=== PATIENT | female | born 1950 | race Caucasian/White ===

== ENCOUNTER 2018-07-09 15:11 | Emergency (ER) | payer OTHER ==
[~2018-07-09] VITALS: Ht 147.3 cm; Wt 43.1 kg
[~2018-07-09 15:11] MED LIST: ASPIRIN EC81 M1 PO; EPINEPHRIN0.3 MG/0.1 IM; FENTANYL1 EAC2 TOP; FENTANYL1 EAC6 TOP; MEDROL4 M2 PO; METOPROLOL SUCC25 M1 PO; MIRAPEX0.25 M1 PO; VYTORIN 10-201 EACH PO; ZITHROMAX250 M2 PO
--- NOTE | 2018-07-09 15:28 | ED NECK/BACK PAIN COMPLAINT ---
History of Present Illness General Chief Complaint: Low Back Pain/Injury Stated Complaint: LOW BACK PAIN Source: patient Exam Limitations: no limitations Vital Signs & Intake/Output Vital Signs & Intake/Output Vital Signs Date Time Temp Pulse Resp B/P B/P Pulse O2 O2 Flow FiO2 Mean Ox Delivery Rate 07/09 1732 100.0 75 18 123/68 98 Room Air 07/09 1722 Room Air 07/09 1523 98.1 78 18 129/71 96 Room Air Allergies Coded Allergies: bee venom protein (honey bee) (ANAPHYLAXIS 09/21/17) Reconcile Medications Aspirin (Ecotrin*) 81 MG TABLET.DR 1 TAB PO DAILY HEART/BLOOD (Reported) Diclofenac Sodium (Voltaren) 1 % GEL..GRAM. 1 GM TOP 4 TIMES/DAY PRN back pain apply to affected area(s) Epinephrine 0.3 MG/0.3 ML AUTO.INJCT 0.3 MG IM AD PRN ALLERGIC REACTION ( Reported) Ezetimibe/Simvastatin (Vytorin 10-20 MG Tablet) 10 MG-20 MG TABLET 1 TAB PO DAILY CHOLESTEROL (Reported) Fentanyl 25 MCG/HOUR PATCH.TD72 1 PAT TOP Q3D PAIN (Reported) Fentanyl 12 MCG/HOUR PATCH.TD72 1 PAT TOP Q3D PAIN (Reported) Metoprolol Succinate 25 MG TAB 1 TAB PO DAILY HEART/BP (Reported) Pramipexole Di-HCl (Mirapex) 0.25 MG TABLET 1 TAB PO QPM RLS (Reported) Triage Note: PT STATES THAT SHE HAS CHRONIC BACK PROBLEMS THAT SHE USES FENTANYL PATCHES AND TAKES HYDROCODONE FOR , STATES THAT HER PAIN HAS BEEN INCREASING, WAS SUPOSSED TO HAVE EPIDURAL YESTERDAY BUT SHE TOOK ASPRIN AND THEY COULD NOT DO IT Triage Nurses Notes Reviewed? yes Onset: Gradual Duration: day(s): Timing: recent history Quality/Severity: severe Location: lumbar spine HPI: 68yo female with hx of scoliosis s/p 2 spinal surgeries and chronic back pain presents to ED complaining of worsening back pain for the past several days. Patient takes fentanyl patch and hydrocodone from pain management. She states she was due for an epidural shot however she missed it and is here for a "pain shot". There was no recent fall or trauma however patient notes that she went hiking 3 weeks ago and noticed some increasing back pain after this. No numbness or tingling. (Marivel FELDERShivani) Past History Travel History Traveled to [place] past 21 day No Medical History Any Pertinent Medical History? see below for history Neurological: migraine, BRAIN BLEED FROM FALL EENT: NONE Cardiovascular: CAD, hypertension, hyperlipidemia Respiratory: NONE Gastrointestinal: NONE Hepatic: NONE Renal: NONE Musculoskeletal: "BACK PROBLEMS" Psychiatric: NONE Endocrine: NONE Surgical History Surgical History: hernia repair-incisional, hysterectomy, spinal fusion (LAD stenting, carpal tunnel re) Psychosocial History Who do you live with Sister What is your primary language Gambian Tobacco Use: Never used ETOH Use: denies use Illicit Drug Use: denies illicit drug use Family History Hx Contributory? No (Shivani Dorsey) Review of Systems Review of Systems Constitutional: Reports: no symptoms. Eyes: Reports: no symptoms. Ears, Nose, Throat, Mouth: Reports: no symptoms. Respiratory: Reports: no symptoms. Cardiovascular: Reports: no symptoms. Gastrointestinal/Abdominal: Reports: no symptoms. Musculoskeletal: Reports: see HPI. Skin: Reports: no symptoms. Neurological/Psychological: Reports: no symptoms. All Other Systems: Reviewed and Negative (Shivani Dorsey) Physical Exam Physical Exam General Appearance: well developed/nourished, no apparent distress, alert, awake Head: atraumatic, normal appearance Eyes: Bilateral: normal appearance. Ears, Nose, Throat, Mouth: hearing grossly normal Neck: normal inspection, supple, full range of motion Respiratory: no respiratory distress Back: normal inspection, normal range of motion, left sided paraspinal muscle tenderness Extremities: normal range of motion Straight Leg Raising: Right: Negative. Left: Negative. Sensory: Medial Le: L4R, L4L. Top of Foot: 2: L5R, L5L. Sole of Foot: 2: SIR, SONIA. Neurologic/Psych: no motor/sensory deficits, awake, alert, oriented x 3, strength 5/5 equal bilateral lower extremities Skin: intact, normal color, warm/dry Core Measures CVA/TIA Diagnosis: No (Shivani Dorsey) Progress Differential Diagnosis: cauda equina syn, herniated disc, myofascial strain, sciatica, spinal cord inj, T/L spine injury Plan of Care: Orders Procedure Date/time Status XRY-LUMBOSACRAL SPINE AP & LAT 07/09 1527 Active Xray is stable. Symptoms likely an exacerbation of patient's chronic pain. Patient reports some relief with IM toradol. She is ambulatory without difficulty here in ED. Patient is currently in pain management, she will follow up with her specialist. Patient seen and evaluated by Dr. Anaya who agrees with the plan of care. Diagnostic Imaging: Viewed by Me: Radiology Read. Discussed w/RAD: Radiology Read. Radiology Impression: PATIENT: SANDRA PADILLA PRESENT AGE: 68 PATIENT ACCOUNT NO: [id number] : 48 LOCATION: [facility] ORDERING PHYSICIAN: Shivani FELDER SERVICE DATE: 07/09/18 EXAM TYPE: RAD - XRY-LUMBOSACRAL SPINE AP & LAT EXAMINATION: XR LUMBOSACRAL SPINE CLINICAL INFORMATION: Low back pain. History of scoliosis and fusion. Rule out fracture, degeneration. COMPARISON: CT abdomen pelvis dated 10/17/2010. TECHNIQUE: AP and lateral views of the lumbosacral spine FINDINGS: Bones are osteopenic. There is severe scoliotic curvature in the thoracolumbar spine with right convexity in the lower thoracic spine and left convexity in the lumbar spine. No acute fractures are identified, though sensitivity is limited by the degree of osteopenia and the significant overlap of the patient's anatomy due to scoliotic curvature. Multilevel degenerative disc disease in the lumbar spine is most pronounced at L3-L4. There is marked loss of intervertebral disc heights and endplate osteophytes. More mild degenerative disc disease is present at L2-L3. There is severe facet arthropathy throughout the lower lumbar spine with pars defects at L5-S1. There is grade 1 anterolisthesis of L5 on S1 by 7 mm. There is also likely slight retrolisthesis of L3 on L4. Calcific atherosclerosis is present in the abdominal aorta. Lung bases are clear. Nondilated bowel gas pattern. Mild osteophyte arthritis is present in the SI joints. There is osteophyte arthritis in the hips, left greater than right. No acute osseous lesions. IMPRESSION: 1. Severe sigmoid scoliosis in the thoracolumbar spine with severe degenerative disc disease at L3-L4 and severe facet arthropathy in the lower lumbar spine. 2. Chronic bilateral pars defects at L5 with grade 1 anterolisthesis of L5 on S1. 3. No acute fractures are identified, though sensitivity is limited by osteopenia and the overlap of normal anatomic structures due to sigmoid scoliosis. DICTATED BY: Jacobo Cuellar MD DATE/TIME DICTATED:07/09/181621 CHANGE LEAD:ROBERTH DATE/TIME TRANSCRIBED:1621 CONFIDENTIAL, DO NOT COPY WITHOUT APPROPRIATE AUTHORIZATION. < Electronically signed in Other Vendor System> SIGNED BY: Jacobo Cuellar MD 07/09/18 1631 (Shivani Dorsey) Departure Departure Disposition: HOME OR SELF CARE Condition: Stable Clinical Impression Primary Impression: Back pain Qualifiers: Back pain location: low back pain Chronicity: chronic Back pain laterality: midline Sciatica presence: without sciatica Qualified Codes: M54.5 - Low back pain; G89.29 - Other chronic pain Referrals: Sophy MARADIAGA,Yusuf Carreon (PCP/Family) Additional Instructions: Follow up with your back specialist. Continue your home pain meds. REturn with worsening symptoms or concerns. Please note that there might be incidental findings in your evaluation that are unrelated to the current emergency department visit. Please notify your primary care doctor about this emergency department visit in order to obtain and review all of the testing performed so that these incidental findings can be monitored as needed. If you had an x-ray performed, please understand that some fractures may not be seen on the initial set of x-rays. If your symptoms persist you might need a repeat set of x-rays to check for such a fracture. If you had a laceration evaluated, please understand that foreign bodies such as glass or wood may not be visible to the naked eye or on plain x-rays. If the wound becomes red, swollen, increasingly more painful or if there is any drainage from the wound, please have it reevaluated by a physician for the possibility of a retained foreign body. If you're unable to follow up as outlined in the discharge instructions please return to the emergency department. Thank you for choosing the [facility] Emergency Department for your care. It was a pleasure to serve you today. Departure Forms: Customer Survey General Discharge Information Prescriptions: Current Visit Scripts Diclofenac Sodium (Voltaren) 1 GM TOP 4 TIMES/DAY PRN back pain #1 TUBE apply to affected area(s) (Shivani Dorsey) PA/TELEPHONE INSTRUMENT SUPERVISOR Co-Sign Statement Statement: ED Attending supervision documentation- [x] I saw and evaluated the patient. I have also reviewed all the pertinent lab results and diagnostic results. I agree with the findings and the plan of care as documented in the PA's/TELEPHONE INSTRUMENT SUPERVISOR's documentation. [] I have reviewed the ED Record and agree with the PA's/TELEPHONE INSTRUMENT SUPERVISOR's documentation. [] Additions or exceptions (if any) to the PAs/TELEPHONE INSTRUMENT SUPERVISOR's note and plan are summarized below: [] Patient had no acute distress on my exam. Mild lower tenderness to the lumbar spine. (Azael Anaya DO)
--- NOTE | 2018-07-09 16:31 | RADIOLOGY REPORT ---
EXAMINATION: XR LUMBOSACRAL SPINE CLINICAL INFORMATION: Low back pain. History of scoliosis and fusion. Rule out fracture, degeneration. COMPARISON: CT abdomen pelvis dated 10/17/2010. TECHNIQUE: AP and lateral views of the lumbosacral spine FINDINGS: Bones are osteopenic. There is severe scoliotic curvature in the thoracolumbar spine with right convexity in the lower thoracic spine and left convexity in the lumbar spine. No acute fractures are identified, though sensitivity is limited by the degree of osteopenia and the significant overlap of the patient's anatomy due to scoliotic curvature. Multilevel degenerative disc disease in the lumbar spine is most pronounced at L3-L4. There is marked loss of intervertebral disc heights and endplate osteophytes. More mild degenerative disc disease is present at L2-L3. There is severe facet arthropathy throughout the lower lumbar spine with pars defects at L5-S1. There is grade 1 anterolisthesis of L5 on S1 by 7 mm. There is also likely slight retrolisthesis of L3 on L4. Calcific atherosclerosis is present in the abdominal aorta. Lung bases are clear. Nondilated bowel gas pattern. Mild osteophyte arthritis is present in the SI joints. There is osteophyte arthritis in the hips, left greater than right. No acute osseous lesions. IMPRESSION: 1. Severe sigmoid scoliosis in the thoracolumbar spine with severe degenerative disc disease at L3-L4 and severe facet arthropathy in the lower lumbar spine. 2. Chronic bilateral pars defects at L5 with grade 1 anterolisthesis of L5 on S1. 3. No acute fractures are identified, though sensitivity is limited by osteopenia and the overlap of normal anatomic structures due to sigmoid scoliosis.
[2018-07-09 17:32] VITALS: BP 123/68
[2018-07-09] MEDS ORDERED: VOLTAREN100 GM TOP (18:00)
== END 2018-07-09 18:25 ==
LOC: ERH 15:11
DX: M54.9 Dorsalgia, unspecified (principal)
CPT/HCPCS: 72100; 96372; J1885